=== PATIENT | female | born 1940 | race Caucasian/White ===

== ENCOUNTER 2019-07-21 09:01 | Inpatient (IN) | payer OTHER, MEDICAID ==
[~2019-07-21] VITALS: Ht 147.3 cm; Wt 61.4 kg
[2019-07-21 09:16] VITALS: BP 156/63
[2019-07-21 09:32] LABS: BASO % 0.9 % (0.0-1.0); EOS # 0.2 10*3/uL (0.0-0.4); EOS % 4.1 % (1.0-4.0); HEMATOCRIT 31.3 % (42.0-52.0); LYMPH # 1.2 10*3/uL (1.3-4.4); LYMPH % 27.9 % (27.0-41.0); MEAN CELL VOLUME 87.2 fl (80.0-94.0); MEAN CORPUSCULAR HGB 28.4 pg (27.0-31.0); MEAN CORPUSCULAR HGB CONC 32.6 g/dl (33.0-37.0); MEAN PLATELET VOLUME 10.7 fl (9.6-12.3); MONO # 0.5 10*3/uL (0.1-1.0); MONO % 10.7 % (3.0-9.0); NEUT # 2.5 10*3/uL (2.3-7.9); NEUT % 56.2 % (47.0-73.0); PLATELET COUNT AUTOMATED 112 10*3/uL (130-400); RED BLOOD COUNT 3.59 10*6/uL (4.50-5.90); RED CELL DISTRI WIDTH 15.2 % (0-14.5); WHITE BLOOD COUNT 4.4 10*3/uL (4.8-10.8)
[2019-07-21 09:37] LABS: ACT PARTIAL THROMBO TIME 42.4 SECONDS (20.0-32.1)
[2019-07-21 09:41] LABS: ALKALINE PHOSPHATASE 79 U/L (45-117); BUN 25 mg/dl (7-24); CHLORIDE 107 mmol/L (98-107); CREATININE 1.13 mg/dL (0.55-1.02); POTASSIUM 4.9 mmol/L (3.5-5.1); SGOT/AST 25 IU/L (3-35); SGPT/ALT 21 U/L (12-78); SODIUM 141 mmol/L (136-145); TOTAL PROTEIN 7.5 gm/dL (6.4-8.2)
[2019-07-21 09:42] LABS: TROPONIN I < 0.015 ng/ml (<0.045)
[2019-07-21 11:03] LABS: BILIRUBIN NEGATIVE (NEGATIVE); BLOOD NEGATIVE (NEGATIVE); CLARITY SL CLOUDY (CLEAR); COLOR YELLOW (YELLOW); GLUCOSE NEGATIVE (NEGATIVE); KETONE NEGATIVE (NEGATIVE); LEUKO ESTERASE 1+ (NEGATIVE); NITRITE NEGATIVE (NEGATIVE); SPECIFIC GRAVITY 1.015 (1.005-1.030); UROBILINOGEN 0.2 E.U./dl (0.2-1.0)
--- NOTE | 2019-07-21 11:03 | NUR ---
PT SLEEPING. NURSE TO NURSE REPORT RECEIVED FROM BEATA HUANG.
[2019-07-21 11:08] LABS: BACTERIA 1+; CALCIUM OXALATE CRYSTALS TRACE
--- NOTE | 2019-07-21 11:21 | NUR ---
PT HAS C/O BEING COLD. RESET MONITOR WIRES AND GOT A WARM BLANKET. SAFETY PRECAUTIONS INTACT. WILL CONTINUE TO MONITOR.
[2019-07-21 11:36] VITALS: BP 129/69
--- NOTE | 2019-07-21 11:37 | NUR ---
PT C/O VILLEGAS. GANESH GOODE NOTIFIED.
--- NOTE | 2019-07-21 13:12 | NUR ---
FLOOR NURSE AT [facility]. SHE WILL CALL WHEN SHE RETURNS AND IS READY FOR PT.
[2019-07-21] MEDS ORDERED: BIOTIN5000 MC1 SL (13:55)
[2019-07-21] MEDS ORDERED: ISOSORBIDE30 MG PO (13:56)
[2019-07-21] MEDS ORDERED: VITAMIN D325 MCG PO (13:56)
[2019-07-21] MEDS ORDERED: NOVOLOG10 ML SC (13:59)
[2019-07-21] MEDS ORDERED: PRAVASTATIN SOD80 MG PO (13:59)
[2019-07-21] MEDS ORDERED: OLANZAPINE2.5 MG PO (13:59)
[2019-07-21] MEDS ORDERED: EXELON1 EAC1 T (14:00)
--- NOTE | 2019-07-21 14:00 | NUR ---
Time: 1399 A 79 year old FEMALE admitted to 5E under services of CHRIS HENRIQUEZ DO. Pt. arrived via ambulance from ER. Chief complaint: DIZZINESS, CHEST PAIN\. RIRI LUGO
[2019-07-21] MEDS ORDERED: RIVASTIGMINE T1.5 M1 PO (14:01)
[2019-07-21] MEDS ORDERED: ASPIRIN CHEWABL81 MG PO (14:02)
[2019-07-21] MEDS ORDERED: BUSPAR5 MG PO (14:02)
[2019-07-21] MEDS ORDERED: IRON325 M1 PO (14:03)
[2019-07-21] MEDS ORDERED: POTASSIUM CHLO20 ME3 PO (14:06)
[2019-07-21] MEDS ORDERED: RIVASTIGMINE T4.5 M1 PO (14:07)
[2019-07-21] MEDS ORDERED: MILK OF MA400 MG/5 M PO (14:08)
[2019-07-21] MEDS ORDERED: DULCOLAX10 M1 R (14:08)
[2019-07-21] MEDS ORDERED: FLEET MINERAL133 ML PO (14:09)
[2019-07-21] MEDS ORDERED: TYLENOL325 M1 PO (14:11)
[2019-07-21] MEDS ORDERED: MYLANTA MAXIMU355 M1 PO (14:11)
--- NOTE | 2019-07-21 15:00 | NUR ---
IN TO ROOM. PATIENT AWAKE, ALERT AND ORIENTED. NO STATED COMPLAINTS AT THIS TIME. DENIES ANY PAIN. RESPIRATIONS ARE EASY AND REGULAR ON ROOM AIR. NO SOB OR DISTRESS NOTED. BED IN LOWEST LOCKED POSITION AND CALL LIGHT WITHIN REACH. WILL CONTINUE TO MONITOR.
--- NOTE | 2019-07-21 15:41 | NUR ---
Nursing screen and occupational therapy orders received. Will follow up with patient for completion of an OT eval. Thank you. Myra Turcios, OTR/L
[2019-07-21 16:00] VITALS: BP 147/58
--- NOTE | 2019-07-21 18:30 | NUR ---
BUCK REMOVED. PATIENT TOLERATED WELL. WILL CONTINUE TO MONITOR.
[2019-07-21 20:00] VITALS: BP 129/64
--- NOTE | 2019-07-21 21:00 | NUR ---
24 HR chart check completed.
--- NOTE | 2019-07-21 21:00 | NUR ---
SLEEPING. NO ACUTE DISTRESS NOTED. RESPIRATIONS EASY. LUNGS DIMINISHED, CLEAR. PULES OX 95% RA. BLE EDEMA. IV FLUIDS INFUSING PER ORDER. CALL LIGHT WITHIN REACH. NO VOICED COMPLAINTS. BED ALARM MAINTAINED FOR SAFETY
[2019-07-22] VITALS: BP 118/60
--- NOTE | 2019-07-22 | NUR ---
SLEEPING. NO DISTRESS NOTED. RESPIRATIONS EASY. VSS. IV FLUIDS MAINTAINED. CALL LIGHT WITHIN REACH. BED ALARM MAINTAINED FOR SAFETY
--- NOTE | 2019-07-22 02:34 | NUR ---
INFORMED THAT HOME MED HAVE NOT BEEN CONTINUED. STATED OK
--- NOTE | 2019-07-22 06:00 | NUR ---
ORTHOS CHECKED: LAYIN/60 57 SITTIN/52 51 STANDIN/58 70 QUESTIONED PATIENT TO WHETHER SHE WAS DIZZY, PATIENT REPLIED "NOT TOO MUCH" RETURNED TO BED AND POSITIONED FOR COMFORT. CALL LIGHT WITHIN REACH. BED ALARM REAPPLIED
--- NOTE | 2019-07-22 06:00 | NUR ---
SLEPT THROUGHOUT NIGHT WITH NO DISTRESS NOTED. RESPIRATIONS EASY. CALL LIGHT WITHIN REACH. NO VOICED COMPLAINTS THIS SHIFT. REMAINS NPO FOR STRESS TEST THIS AM
[2019-07-22 06:27] LABS: BASO % 0.4 % (0.0-1.0); EOS # 0.1 10*3/uL (0.0-0.4); EOS % 2.6 % (1.0-4.0); HEMATOCRIT 28.7 % (37.0-47.0); LYMPH # 1.2 10*3/uL (1.3-4.4); LYMPH % 25.4 % (27.0-41.0); MEAN CELL VOLUME 87.2 fl (81.0-99.0); MEAN CORPUSCULAR HGB 28.9 pg (27.0-31.0); MEAN CORPUSCULAR HGB CONC 33.1 g/dl (33.0-37.0); MEAN PLATELET VOLUME 10.4 fl (9.6-12.3); MONO # 0.5 10*3/uL (0.1-1.0); MONO % 10.6 % (3.0-9.0); NEUT # 2.8 10*3/uL (2.3-7.9); NEUT % 60.8 % (47.0-73.0); PLATELET COUNT AUTOMATED 101 10*3/uL (130-400); RED BLOOD COUNT 3.29 10*6/uL (4.10-5.10); RED CELL DISTRI WIDTH 15.2 % (0-14.5); WHITE BLOOD COUNT 4.6 10*3/uL (4.8-10.8)
[2019-07-22 06:58] LABS: ALBUMIN 2.7 gm/dl (3.1-4.5); ALKALINE PHOSPHATASE 70 U/L (45-117); BUN 24 mg/dl (7-24); CHLORIDE 108 mmol/L (98-107); CHOLESTEROL 152 mg/dL (<200); CREATININE 0.95 mg/dL (0.55-1.02); FREE T4 1.02 ng/dl (0.76-1.46); HDL CHOLESTEROL 40 mg/dl (40-60); LDL CHOLESTEROL 94 mg/dL (9-159); POTASSIUM 4.3 mmol/L (3.5-5.1); SGOT/AST 19 IU/L (3-35); SGPT/ALT 16 U/L (12-78); SODIUM 140 mmol/L (136-145); TOTAL PROTEIN 6.9 gm/dL (6.4-8.2); TRIGLYCERIDES 92 mg/dl (<150); VLDL CHOLESTEROL 18 mg/dL (6-40)
[2019-07-22 08:00] VITALS: BP 164/66
--- NOTE | 2019-07-22 08:00 | NUR ---
0800 ASSESSMENT COMPLETE. PT DENIES C/O AT THIS TIME. CALL LIGHT WITHIN REACH. WILL CONTINUE TO MONITOR.
[2019-07-22 08:11] LABS: VITAMIN D, 25-HYDROXY 30.4 ng/mL (30-100)
--- NOTE | 2019-07-22 10:49 | NUR ---
PT OFF FOR FOR STRESS TEST.
--- NOTE | 2019-07-22 10:50 | NUR ---
Occupational Therapy evaluation completed on 5 with full evaluation to follow. Recommend occupational therapy per plan of care and return to LTC upon discharge. Thank you for this referral. Peyton Woody OTR/L
--- NOTE | 2019-07-22 10:53 | NUR ---
[facility] faxed updates to [facility] on this date. Patient is LTC with [facility] and can return once medically stable.
--- NOTE | 2019-07-22 11:05 | NUR ---
PHYSICAL THERAPY Angela arredondo chart reviewed pt see by OT earlier for assessment and stating pt with poor tolerance/weakness dizziness to activity. Pt also out of room for further testing had ECHO then stress test. Will follow at a later date. Faiza Dinero PT
--- NOTE | 2019-07-22 11:45 | NUR ---
INFORMED CONSENT OBTAINED FOR LEXISCAN NUCLEAR STRESS TEST WITH DR. MARINO. RESTING EKG SINUS TARUN WITH A RESTING HR OF 58 WITH BP OF 136/66. LUNGS CLEAR WITH SPO2 OF 92% ON ROOM AIR. PT COMPLETED A 1:00 LEXISCAN PROTOCOL RECEIVING LEXISCAN 0.4 MG IV OVER 10 SECONDS. HAD NO CHEST PAIN OR ANY EKG CHANGES. DID C/O FEELING OF SHORT OF BREATH AND NAUSEA THAT RESOLVED IN RECOVERY. HAD A PEAK HR OF 95 WITH BP OF 142/62. LAST RECOVERY HR OF 86 WITH BP OF 124/62. AWAITING SCANNING IN STABLE CONDITION.
--- NOTE | 2019-07-22 13:41 | NUR ---
PHYSICAL THERAPY Screen and PT eval received will follow thank you Faiza Dinero PT
--- NOTE | 2019-07-22 14:47 | NUR ---
Patient is discharged at this time back to [facility] @ 1515 via [facility] Transportation team. Dc information faxed, [place], nursing/import/export freight forwarder notified and family notified by phone.
--- NOTE | 2019-07-22 15:09 | NUR ---
[facility] Discharge instructions reviewed with patient/family. Patient receptive and verbalizes understanding. Follow-up care arranged. Written instructions given to patient/family. VICENTA MIXON
== END 2019-07-22 15:09 | DRG 205 ==
LOC: ED 09:01 → EDHOLD 12:20 → 5E 12:20
PROVIDERS: Family Medicine; Internal Medicine; Physician Assistant; ADMIT Emergency Medicine
PROC: 4A02XM4 Measurement of Cardiac Total Activity, External Approach (ICD-10-PCS; principal; 2019-07-22)
PROC: 3E073KZ Introduction of Other Diagnostic Substance into Coronary Artery, Percutaneous Approach (ICD-10-PCS; principal; 2019-07-22)
DX: M94.0 Chondrocostal junction syndrome [Tietze] (principal); N17.0 Acute kidney failure with tubular necrosis; E44.0 Moderate protein-calorie malnutrition; D61.818 Other pancytopenia; R42 Dizziness and giddiness; E03.9 Hypothyroidism, unspecified; F03.90 Unspecified dementia, unspecified severity, without behavioral disturbance, psychotic disturbance, mood disturbance, and anxiety; E11.65 Type 2 diabetes mellitus with hyperglycemia; R26.2 Difficulty in walking, not elsewhere classified; E78.5 Hyperlipidemia, unspecified; E11.22 Type 2 diabetes mellitus with diabetic chronic kidney disease; I12.9 Hypertensive chronic kidney disease with stage 1 through stage 4 chronic kidney disease, or unspecified chronic kidney disease; N18.9 Chronic kidney disease, unspecified; Z68.28 Body mass index [BMI] 28.0-28.9, adult; Z96.612 Presence of left artificial shoulder joint; Z96.611 Presence of right artificial shoulder joint; Z96.659 Presence of unspecified artificial knee joint; Z96.642 Presence of left artificial hip joint; Z87.891 Personal history of nicotine dependence; Z86.73 Personal history of transient ischemic attack (TIA), and cerebral infarction without residual deficits; Z83.3 Family history of diabetes mellitus; Z80.3 Family history of malignant neoplasm of breast; Z79.82 Long term (current) use of aspirin; Z79.4 Long term (current) use of insulin; Z79.899 Other long term (current) drug therapy; Z88.8 Allergy status to other drugs, medicaments and biological substances; Z91.018 Allergy to other foods

== ENCOUNTER 2019-08-31 11:18 | Emergency (ER) | payer OTHER, MEDICAID ==
[~2019-08-31] VITALS: Ht 149.8 cm; Wt 63.5 kg
[~2019-08-31 11:18] MED LIST: ASPIRIN CHEWABL81 MG PO; BIOTIN5000 MC1 SL; BUSPAR5 MG PO; DULCOLAX10 M1 R; EXELON1 EAC1 T; FLEET MINERAL133 ML PO; IRON325 M1 PO; ISOSORBIDE30 MG PO; MILK OF MA400 MG/5 M PO; MYLANTA MAXIMU355 M1 PO; NOVOLOG10 ML SC; OLANZAPINE2.5 MG PO; POTASSIUM CHLO20 ME3 PO; PRAVASTATIN SOD80 MG PO; RIVASTIGMINE T1.5 M1 PO; RIVASTIGMINE T4.5 M1 PO; TYLENOL325 M1 PO; VITAMIN D325 MCG PO
== END 2019-08-31 13:26 | disposition other institution (70) ==
LOC: ED 11:18
DX: S00.01XA Abrasion of scalp, initial encounter (principal); Z88.6 Allergy status to analgesic agent; Z91.018 Allergy to other foods; Z79.899 Other long term (current) drug therapy; Z79.4 Long term (current) use of insulin; Z87.891 Personal history of nicotine dependence; W18.39XA Other fall on same level, initial encounter; Y93.89 Activity, other specified; Y92.128 Other place in nursing home as the place of occurrence of the external cause; Y99.8 Other external cause status

== ENCOUNTER 2019-09-07 11:32 | Emergency (ER) | payer OTHER, MEDICAID ==
[2019-09-07 12:28] LABS: BASO % 0.4 % (0.0-1.0); EOS # 0.2 10*3/uL (0.0-0.4); EOS % 3.2 % (1.0-4.0); HEMATOCRIT 31.3 % (37.0-47.0); LYMPH # 1.1 10*3/uL (1.3-4.4); LYMPH % 22.6 % (27.0-41.0); MEAN CORPUSCULAR HGB 28.8 pg (27.0-31.0); MEAN CORPUSCULAR HGB CONC 33.5 g/dl (33.0-37.0); MEAN PLATELET VOLUME 10.4 fl (9.6-12.3); MONO # 0.5 10*3/uL (0.1-1.0); MONO % 10.3 % (3.0-9.0); NEUT % 63.3 % (47.0-73.0); PLATELET COUNT AUTOMATED 106 10*3/uL (130-400); RED BLOOD COUNT 3.64 10*6/uL (4.10-5.10); RED CELL DISTRI WIDTH 14.4 % (0-14.5); WHITE BLOOD COUNT 4.7 10*3/uL (4.8-10.8)
[2019-09-07 12:42] LABS: ALBUMIN 3.1 gm/dl (3.1-4.5); ALKALINE PHOSPHATASE 74 U/L (45-117); BUN 22 mg/dl (7-24); CHLORIDE 106 mmol/L (98-107); CREATININE 0.98 mg/dL (0.55-1.02); POTASSIUM 4.6 mmol/L (3.5-5.1); SGOT/AST 30 IU/L (3-35); SGPT/ALT 24 U/L (12-78); SODIUM 136 mmol/L (136-145); TOTAL PROTEIN 7.6 gm/dL (6.4-8.2)
[2019-09-07 12:59] LABS: BILIRUBIN NEGATIVE (NEGATIVE); CLARITY CLEAR (CLEAR); COLOR YELLOW (YELLOW); GLUCOSE NEGATIVE (NEGATIVE); KETONE NEGATIVE (NEGATIVE)
[2019-09-07 13:00] LABS: BLOOD NEGATIVE (NEGATIVE); LEUKO ESTERASE NEGATIVE (NEGATIVE); NITRITE NEGATIVE (NEGATIVE); PH 6.5 (5.0-9.0); SPECIFIC GRAVITY 1.015 (1.005-1.030); UROBILINOGEN 0.2 E.U./dl (0.2-1.0)
[2019-09-07 13:05] LABS: BACTERIA TRACE; RBC 0-2 rbc/hpf (0-2)
[2019-09-07] MEDS ORDERED: ZOFRAN4 MG PO (14:48)
== END 2019-09-07 15:05 ==
LOC: ED 11:32
PROVIDERS: Emergency Medicine
DX: R51 Headache (principal); R11.0 Nausea; Z88.6 Allergy status to analgesic agent; Z79.899 Other long term (current) drug therapy; Z79.4 Long term (current) use of insulin; Z79.82 Long term (current) use of aspirin; Z87.891 Personal history of nicotine dependence

== ENCOUNTER 2020-05-03 09:19 | Emergency (ER) | payer OTHER, MEDICAID ==
[~2020-05-03] VITALS: Ht 149.8 cm; Wt 74.8 kg
[~2020-05-03 09:19] MED LIST changes: +ZOFRAN4 MG PO
== END 2020-05-03 12:32 ==
LOC: ED 09:19
DX: Z04.3 Encounter for examination and observation following other accident (principal); I12.9 Hypertensive chronic kidney disease with stage 1 through stage 4 chronic kidney disease, or unspecified chronic kidney disease; E11.22 Type 2 diabetes mellitus with diabetic chronic kidney disease; N18.9 Chronic kidney disease, unspecified; E78.5 Hyperlipidemia, unspecified; E03.9 Hypothyroidism, unspecified; Z88.8 Allergy status to other drugs, medicaments and biological substances; Z79.899 Other long term (current) drug therapy; Z79.4 Long term (current) use of insulin; Z79.82 Long term (current) use of aspirin; Z96.642 Presence of left artificial hip joint; Z96.611 Presence of right artificial shoulder joint; Z96.612 Presence of left artificial shoulder joint; Z96.659 Presence of unspecified artificial knee joint; Z87.891 Personal history of nicotine dependence; Z95.0 Presence of cardiac pacemaker; W19.XXXA Unspecified fall, initial encounter; Y93.89 Activity, other specified; Y92.128 Other place in nursing home as the place of occurrence of the external cause; Y99.8 Other external cause status